=== PATIENT | male | born 1990 | race Caucasian/White ===

== ENCOUNTER 2018-10-28 13:51 | Emergency (ER) | payer MEDICAID ==
[~2018-10-28] VITALS: Ht 175.3 cm; Wt 72.4 kg
[2018-10-28 13:58] VITALS: Ht 175.3 cm; Wt 72.4 kg
[2018-10-28] MEDS ORDERED: DIPHENHYDRAMINE 50 MG INJ IM ONE (14:30)
[2018-10-28] MEDS ORDERED: OLANZAPINE 10 MG VIAL IM ONE (14:30)
[2018-10-28] MEDS ORDERED: LORAZEPAM 2 MG INJ IM ONE (14:30)
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
[2018-10-28] MEDS ORDERED: OLANZAPINE 5 MG TAB PO ONE (22:30)
--- NOTE | 2018-10-29 06:24 | EN ---
Date/Time of Note Date/Time of Note DATE: 10/29/18 TIME: 06:23 ER Progress Note Psychiatric Observation Note: Indication: Suicidal ideation Duration: Greater than 10 hours Family history: As documented in original HPI The patient was observed with serial exams over the above timeframe. The patient continued to be well-appearing, and observation continued without complication. All other needs have been met during emergency department stay. Routine psychiatric medications ordered: Yes, see EMR - Medication management: Would start Zyprexa 5 mg by mouth twice a day. Hold status: Currently on 5150 hold Placement status: Patient has been accepted to [facility] and is pending transportation this morning. CLEMENTE HOLGUIN MD Oct 29, 2018 06:24
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
[2018-10-29] MEDS ORDERED: OLANZAPINE 5 MG TAB PO SCH (09:00)
[2018-10-29 09:15] VITALS: BP 116/72; PULSE 89; RESP 16
== END 2018-10-29 09:25 | disposition home or self-care (01) ==
LOC: E/R 13:51
DX: F29 Unspecified psychosis not due to a substance or known physiological condition (principal); F15.10 Other stimulant abuse, uncomplicated; R40.2142 Coma scale, eyes open, spontaneous, at arrival to emergency department; R40.2352 Coma scale, best motor response, localizes pain, at arrival to emergency department; R40.2232 Coma scale, best verbal response, inappropriate words, at arrival to emergency department
CPT/HCPCS: 80053; 80307; 81001; 85025; 96372; J1200; J2060; Z7502; Z7610